=== PATIENT | female | born 1955 | race Caucasian/White ===

== ENCOUNTER 2016-12-24 20:59 | Emergency (ER) | payer BC ==
[~2016-12-24 20:59] MED LIST: Ondansetron 4 MG Tab.DIS PO ONE
[2016-12-24 21:37] VITALS: BP 143/80
[2016-12-24] MEDS ORDERED: Ondansetron 4 MG/2 ML SDV IVPUSH ONE (21:49)
--- NOTE | 2016-12-24 21:52 | EDM.PDOC ---
ED HPI GENERAL MEDICAL PROBLEM - General Chief Complaint: Fever Stated Complaint: "chills and dizzy" Time Seen by Provider: 12/24/16 21:35 Source of Information: Reports: Patient History Limitations: Reports: No Limitations - History of Present Illness INITIAL COMMENTS - FREE TEXT/NARRATIVE: On Friday was outside a lot but was drinking water and beer. Later friday night she developed a temp and became nauseated. She has had the dry heaves but is not able to vomit since she had her hiatal hernia fixed. Has had some diarrhea with it. Has not been taking her potassium in over a month as she ran out and "hasn't had time to stop at the drug store and fill it" No sick contacts that she knows of. Feels very weak at this time. States that she has been able to drink water and keep it down. Did stay home from work yesterday. Onset: Gradual Location: Reports: Abdomen Associated Symptoms: Reports: Fever/Chills, Headaches, Nausea/Vomiting Lower Abdomen Pain Score (Numeric/FACES): 6 - Related Data Allergies Allergy/AdvReac Type Severity Reaction Status Date / Time No Known Allergies Allergy Verified 12/24/16 21:13 Home Meds: Home Meds Aspirin 325 mg PO DAILY 03/24/14 [History] Calcium Carbonate [Calcium] 1 tab PO DAILY 03/24/14 [History] Cholecalciferol (Vitamin D3) [Vitamin D] 2,000 units PO DAILY 03/24/14 [History] Ibuprofen [Advil] 200 mg PO DAILY PRN 03/24/14 [History] Magnesium 1 tab PO DAILY 03/24/14 [History] PARoxetine HCl [Paxil] 40 mg PO DAILY 03/24/14 [History] amLODIPine [Norvasc] 10 mg PO DAILY 03/24/14 [History] Past Medical History Cardiovascular History: Reports: Hypertension Gastrointestinal History: Reports: Hiatal Hernia Psychiatric History: Reports: Depression Endocrine/Metabolic History: Reports: Hypothyroidism - Past Surgical History HEENT Surgical History: Reports: Tonsillectomy GI Surgical History: Reports: Cholecystectomy Female Surgical History: Reports: Hysterectomy Musculoskeletal Surgical History: Reports: Shoulder Surgery Other Musculoskeletal Surgeries/Procedures:: bACK SURGERY Social & Family History - Tobacco Use Smoking Status *Q: Never Smoker Second Hand Smoke Exposure: No - Alcohol Use Date of Last Drink: 12/22/16 Time of Last Drink: 18:00 - Recreational Drug Use Recreational Drug Use: No ED ROS GENERAL - Review of Systems Review Of Systems: See Below Constitutional: Reports: Fever, Chills, Decreased Appetite HEENT: Reports: Other (photophobia) Respiratory: Reports: Cough. Denies: Shortness of Breath Cardiovascular: Denies: Chest Pain, Edema GI/Abdominal: Reports: Abdominal Pain, Diarrhea, Nausea. Denies: Vomiting : Denies: Dysuria Musculoskeletal: Reports: No Symptoms Skin: Denies: Rash Neurological: Reports: Headache ED EXAM, GI/ABD - Physical Exam Exam: See Below Exam Limited By: No Limitations General Appearance: Alert, Moderate Distress Ears: Normal External Exam, Normal Canal Nose: Normal Inspection Throat/Mouth: Normal Inspection, Normal Oropharynx, No Airway Compromise Head: Normocephalic Neck: Normal Inspection, Supple, Non-Tender, Full Range of Motion Respiratory/Chest: No Respiratory Distress, Lungs Clear, Normal Breath Sounds Cardiovascular: Normal Peripheral Pulses, Regular Rate, Rhythm, No Edema GI/Abdominal: Normal Bowel Sounds, Soft, Tenderness (diffuse tenderness to all. No guarding or rigidity noted. ) Extremities: Normal Inspection Neurological: Alert, Oriented Skin Exam: Warm, Dry, Intact Course - Vital Signs Last Recorded V/S: Last Vital Signs Temp 103.3 F H 12/24/16 21:35 Pulse 105 H 12/24/16 21:35 Resp 20 12/24/16 21:35 BP 143/80 H 12/24/16 21:35 Pulse Ox 99 12/24/16 21:35 - Orders/Labs/Meds Orders: Active Orders 24 hr Category Date Time Status BASIC METABOLIC PANEL,BMP [CHEM] Stat Lab 12/24/16 21:19 Ordered C-REACTIVE PROTEIN [CHEM] Stat Lab 12/24/16 21:19 Ordered Labs: Laboratory Tests 12/24/16 12/24/16 Range/Units 21:22 21:30 WBC 5.2 (5.0-10.0) 10^3/uL RBC 3.94 L (4.00-5.50) 10^6/uL Hgb 10.7 L (12.0-16.0) g/dL Hct 33.5 L (37.0-47.0) % MCV 85.0 (82.0-94.0) fL MCH 27.2 (27.0-32.0) pg MCHC 31.9 L (33.0-38.0) g/dL RDW Coeff of Rosy 13.0 (11.0-15.0) % Plt Count 180 (150-400) 10^3/uL Neut % (Auto) 81.0 (35-85) % Lymph % (Auto) 9.6 L (10-55) % Avery % (Auto) 9.0 (0-16) % Eos % (Auto) 0.2 (0-5) % Baso % (Auto) 0.2 (0-3) % Neut # (Auto) 4.22 (1.80-7.00) 10^3/uL Lymph # (Auto) 0.50 L (1.00-4.80) 10^3/uL Avery # (Auto) 0.47 (0.00-0.80) 10^3/uL Eos # (Auto) 0.01 (0.00-0.45) 10^3/uL Baso # (Auto) 0.01 10^3/uL Urine Color Yellow (YELLOW) Urine Appearance Clear (CLEAR) Urine pH 5.5 (4.5-8.0) Ur Specific [place] 1.016 (1.003-1.020) Urine Protein Trace H (NEGATIVE) mg/dL Urine Glucose (UA) Negative (NEGATIVE) mg/dL Urine Ketones Negative (NEGATIVE) mg/dL Urine Occult Blood Trace-intact H (NEGATIVE) Urine Nitrite Negative (NEGATIVE) Urine Bilirubin Negative (NEGATIVE) Urine Urobilinogen 0.2 (0.2-1.0) EU/dL Ur Leukocyte Esterase Negative (NEGATIVE) Urine RBC 0-5 (0-5) /HPF Urine WBC 0-5 (0-5) /HPF Ur Squamous Epith Cells Occasional H (NOT SEEN) /HPF Departure - Departure Time of Disposition: 22:07 Disposition: Home, Self-Care 01 Condition: Good Clinical Impression: Gastroenteritis, Febrile illness - Discharge Information Instructions: Fever, Adult, [id number] Forms: ED Department Discharge Additional Instructions: Tylenol or advil every 4 hours alternating for temp and comfort. Push fluids as much as tolerated Zofran 1-2 tablets every 4-6 hours as needed for the nausea Restart you potassium in the AM- Clinic to recheck your potassium level in 1 week Recheck sooner if temp does not resolve or your symptoms worsen If Any concerns call the ER or clinic or return No work until fever has resolved. - Problem List & Annotations (1) Febrile illness SNOMED Code(s): 418403044 Code(s): R50.9 - FEVER, UNSPECIFIED Status: Acute Priority: High (2) Gastroenteritis SNOMED Code(s): 19709495 Code(s): K52.9 - NONINFECTIVE GASTROENTERITIS AND COLITIS, UNSPECIFIED Status: Acute Priority: High - Problem List Review Problem List Initiated/Reviewed/Updated: Yes - My Orders Last 24 Hours: My Active Orders 12/24/16 21:19 BASIC METABOLIC PANEL,BMP [CHEM] Stat C-REACTIVE PROTEIN [CHEM] Stat - Assessment/Plan Last 24 Hours: My Active Orders 12/24/16 21:19 BASIC METABOLIC PANEL,BMP [CHEM] Stat C-REACTIVE PROTEIN [CHEM] Stat
[2016-12-24] MEDS ORDERED: Acetaminophen 500 MG Tab PO ONE (21:55)
[2016-12-24] MEDS ORDERED: Potassium Chloride 10 MEQ Tab.ER PO ONE (22:04)
[2016-12-24] MEDS ORDERED: Take Home: Ondansetron 4 MG Tab.DIS, 2 Tab Pack PO ONE (22:05)
[2016-12-24] MEDS ORDERED: Potassium Chloride 10 MEQ Tab.ER ONE (22:24)
== END 2016-12-24 22:30 | disposition home or self-care (01) ==
LOC: CC.ED 20:59
DX: K52.9 Noninfective gastroenteritis and colitis, unspecified (principal); I10 Essential (primary) hypertension; F32.9 Major depressive disorder, single episode, unspecified; E03.9 Hypothyroidism, unspecified; Z79.82 Long term (current) use of aspirin; Z79.899 Other long term (current) drug therapy; Z90.49 Acquired absence of other specified parts of digestive tract; Z90.710 Acquired absence of both cervix and uterus; Z98.890 Other specified postprocedural states
CPT/HCPCS: 36415; 80048; 81001; 85025; 86140; 87040; 96374; 99283; A9270; J2405

== ENCOUNTER → 2022-12-27 | Day surgery (SDC) | payer BC, MEDICARE ==
[~2022-12-27] MED LIST changes: +Ketamine 200 MG/20 ML MDV ONE; +Lactated Ringers 1,000 ML IV SCH; +Midazolam 1 MG/ML 2 ML SDV ONE; -Ondansetron 4 MG Tab.DIS PO ONE; +Propofol 200 MG/20 ML SDV ONE; +fentaNYL 50 MCG/ML SDV ONE
[2022-12-27 13:18] VITALS: BP 134/78; PULSE 70
== END ==
LOC: CC.SDS 08:20
PROVIDERS: ATTEND Family Medicine
DX: K52.9 Noninfective gastroenteritis and colitis, unspecified (principal); K57.30 Diverticulosis of large intestine without perforation or abscess without bleeding; L72.0 Epidermal cyst; F32.A Depression, unspecified; I10 Essential (primary) hypertension; E78.5 Hyperlipidemia, unspecified; K21.9 Gastro-esophageal reflux disease without esophagitis; E03.9 Hypothyroidism, unspecified; E89.0 Postprocedural hypothyroidism; Z79.890 Hormone replacement therapy; Z79.899 Other long term (current) drug therapy; Z98.51 Tubal ligation status
CPT/HCPCS: 00811; 45380; J2250; J2704; J3010; J7120; J3490